=== PATIENT | male | born 1950 | race Caucasian/White ===

== ENCOUNTER 2018-12-20 15:57 | Emergency (ER) | payer OTHER ==
[~2018-12-20] VITALS: Ht 167.6 cm; Wt 57.2 kg
[2018-12-20] MEDS ORDERED: AMLODIPINE BESY10 MG (16:04)
[2018-12-20] MEDS ORDERED: LISINOPRIL40 MG (16:04)
[2018-12-20] MEDS ORDERED: TOPROL XL100 M1 (16:04)
== END 2018-12-20 17:35 | disposition home or self-care (01) ==
LOC: ER 15:57
DX: S01.02XA Laceration with foreign body of scalp, initial encounter (principal); W45.8XXA Other foreign body or object entering through skin, initial encounter; Y93.89 Activity, other specified; Y92.018 Other place in single-family (private) house as the place of occurrence of the external cause; Y99.8 Other external cause status

== ENCOUNTER 2018-12-27 08:20 | Emergency (ER) | payer OTHER ==
[~2018-12-27] VITALS: Ht 165.1 cm; Wt 61.2 kg
[~2018-12-27 08:20] MED LIST: AMLODIPINE BESY10 MG; LISINOPRIL40 MG; TOPROL XL100 M1
[2018-12-27] MEDS ORDERED: OMEGA 3 1,0001 EACH (08:28)
[2018-12-27] MEDS ORDERED: ASA81 MG PO (08:28)
[2018-12-27] MEDS ORDERED: CENTRUM SILVER1 EAC4 (08:28)
[2018-12-27] MEDS ORDERED: GLIMEPIRIDE4 MG (08:31)
== END 2018-12-27 09:48 | disposition home or self-care (01) ==
LOC: ER 08:20
DX: Z48.02 Encounter for removal of sutures (principal)

== ENCOUNTER 2021-08-31 07:17 | Outpatient (CLI) | payer OTHER ==
[~2021-08-31 07:17] MED LIST changes: +ASA81 MG PO; +CENTRUM SILVER1 EAC4; +GLIMEPIRIDE4 MG; +OMEGA 3 1,0001 EACH
== END 2021-08-31 07:28 | disposition home or self-care (01) ==
LOC: NUCLEAR 07:17
PROVIDERS: ATTEND Internal Medicine Cardiovascular Disease
DX: R07.89 Other chest pain (principal); I20.1 Angina pectoris with documented spasm; I25.89 Other forms of chronic ischemic heart disease
CPT/HCPCS: 78452; 93017; A9500; J0153

== ENCOUNTER 2022-02-17 12:05 | Emergency (ER) | payer OTHER ==
[~2022-02-17] VITALS: Ht 167.6 cm; Wt 61.2 kg
== END 2022-02-17 17:50 | disposition home or self-care (01) ==
LOC: ER 12:05
DX: E11.649 Type 2 diabetes mellitus with hypoglycemia without coma (principal); G93.41 Metabolic encephalopathy; I10 Essential (primary) hypertension; G20 Parkinson's disease; Z79.84 Long term (current) use of oral hypoglycemic drugs; Z79.82 Long term (current) use of aspirin

== ENCOUNTER 2022-05-07 09:00 | Day surgery (SDC) | payer OTHER | END 2022-05-07 14:35 | disposition home or self-care (01) | LOC: AMB-ENDOS 09:00 | PROVIDERS: ATTEND Internal Medicine Gastroenterology | DX: K31.0 Acute dilatation of stomach (principal); K29.50 Unspecified chronic gastritis without bleeding; K44.9 Diaphragmatic hernia without obstruction or gangrene; Z20.822 Contact with and (suspected) exposure to COVID-19 ==

== ENCOUNTER 2022-06-04 06:24 | Outpatient (CLI) | payer OTHER | END 2022-06-04 06:38 | disposition home or self-care (01) | LOC: LAB 06:24 | DX: D51.1 Vitamin B12 deficiency anemia due to selective vitamin B12 malabsorption with proteinuria (principal); D51.3 Other dietary vitamin B12 deficiency anemia; D63.1 Anemia in chronic kidney disease; K29.40 Chronic atrophic gastritis without bleeding; F33.9 Major depressive disorder, recurrent, unspecified; N40.1 Benign prostatic hyperplasia with lower urinary tract symptoms; E78.2 Mixed hyperlipidemia; E11.9 Type 2 diabetes mellitus without complications; N18.30 Chronic kidney disease, stage 3 unspecified ==

== ENCOUNTER 2022-06-04 07:09 | Outpatient (CLI) | payer OTHER | END 2022-06-04 07:15 | disposition home or self-care (01) | LOC: SONOGRAMA 07:09 | DX: E04.2 Nontoxic multinodular goiter (principal) ==

== ENCOUNTER 2022-09-16 06:17 | Outpatient (CLI) | payer OTHER | END 2022-09-16 06:18 | disposition home or self-care (01) | LOC: LAB 06:17 | PROVIDERS: ATTEND Internal Medicine Hematology & Oncology | DX: D51.1 Vitamin B12 deficiency anemia due to selective vitamin B12 malabsorption with proteinuria (principal); D51.3 Other dietary vitamin B12 deficiency anemia; D63.1 Anemia in chronic kidney disease; K29.40 Chronic atrophic gastritis without bleeding; F33.9 Major depressive disorder, recurrent, unspecified; N40.1 Benign prostatic hyperplasia with lower urinary tract symptoms; E78.2 Mixed hyperlipidemia; E11.9 Type 2 diabetes mellitus without complications; N18.30 Chronic kidney disease, stage 3 unspecified ==

== ENCOUNTER 2022-09-16 07:06 | Outpatient (CLI) | payer OTHER | END 2022-09-16 07:12 | disposition home or self-care (01) | LOC: SONOGRAMA 07:06 | PROVIDERS: ATTEND Internal Medicine Gastroenterology | DX: R10.9 Unspecified abdominal pain (principal) ==

== ENCOUNTER 2022-10-24 06:12 | Outpatient (CLI) | payer OTHER | END 2022-10-24 06:35 | disposition home or self-care (01) | LOC: LAB 06:12 | PROVIDERS: ATTEND Surgery | DX: Z03.818 Encounter for observation for suspected exposure to other biological agents ruled out (principal); I10 Essential (primary) hypertension; R10.9 Unspecified abdominal pain ==

== ENCOUNTER 2022-10-31 09:20 | Day surgery (SDC) | payer OTHER ==
[~2022-10-31 09:20] MED LIST changes: +ARICEPT5 MG PO; +CENTRU PO; +CRESTOR20 MG PO; +FUSION PLUS CA1 EACH PO; +GASTRACE CAPSU1 EACH PO; +GLIMEPIRIDE4 M1 PO; +HYDROCHLOROTH12.5 MG PO; +NEURIN PO; +PROTONIX40 M1 PO; +RYTARY ER 61.21 EACH PO
[2022-10-31] MEDS ORDERED: TRAMADOL HCL50 MG PO (11:28)
[2022-10-31] MEDS ORDERED: MIRALAX17 GM PO (11:28)
[2022-10-31] MEDS ORDERED: TYLENOL ARTHRI650 MG PO (11:28)
== END 2022-10-31 16:35 | disposition home or self-care (01) ==
LOC: CIR.AMB 09:20
PROVIDERS: ATTEND Surgery
DX: K80.10 Calculus of gallbladder with chronic cholecystitis without obstruction (principal); K82.8 Other specified diseases of gallbladder; Z20.822 Contact with and (suspected) exposure to COVID-19; I10 Essential (primary) hypertension; Z86.73 Personal history of transient ischemic attack (TIA), and cerebral infarction without residual deficits; D64.9 Anemia, unspecified; E11.9 Type 2 diabetes mellitus without complications; Z79.84 Long term (current) use of oral hypoglycemic drugs

== ENCOUNTER → 2023-01-23 | Outpatient (CLI) | payer OTHER ==
[~2023-01-23] MED LIST changes: +MIRALAX17 GM PO; +TRAMADOL HCL50 MG PO; +TYLENOL ARTHRI650 MG PO
== END | disposition home or self-care (01) ==
LOC: SONOGRAMA 11:05
PROVIDERS: ATTEND Specialist
DX: E11.29 Type 2 diabetes mellitus with other diabetic kidney complication (principal); N18.30 Chronic kidney disease, stage 3 unspecified

== ENCOUNTER 2023-03-06 06:11 | Outpatient (CLI) | payer OTHER | END 2023-03-06 06:12 | disposition home or self-care (01) | LOC: LAB 06:11 | PROVIDERS: ATTEND Internal Medicine | DX: I11.9 Hypertensive heart disease without heart failure (principal); Z98.61 Coronary angioplasty status; R10.9 Unspecified abdominal pain; E03.9 Hypothyroidism, unspecified; E78.5 Hyperlipidemia, unspecified; N18.30 Chronic kidney disease, stage 3 unspecified; E11.21 Type 2 diabetes mellitus with diabetic nephropathy; D63.1 Anemia in chronic kidney disease; N30.00 Acute cystitis without hematuria ==

== ENCOUNTER 2023-03-28 13:27 | Outpatient (CLI) | payer OTHER | END 2023-03-28 13:34 | disposition home or self-care (01) | LOC: SONOGRAMA 13:27 | PROVIDERS: ATTEND Urology | DX: R31.1 Benign essential microscopic hematuria (principal); R33.9 Retention of urine, unspecified ==

== ENCOUNTER 2023-03-31 06:24 | Outpatient (CLI) | payer OTHER | END 2023-03-31 06:33 | disposition home or self-care (01) | LOC: LAB 06:24 | PROVIDERS: ATTEND Urology | DX: N40.0 Benign prostatic hyperplasia without lower urinary tract symptoms (principal); N31.1 Reflex neuropathic bladder, not elsewhere classified ==

== ENCOUNTER 2023-05-16 06:27 | Outpatient (CLI) | payer OTHER | END 2023-05-16 06:28 | disposition home or self-care (01) | LOC: LAB 06:27 | PROVIDERS: ATTEND Internal Medicine Hematology & Oncology | DX: D51.1 Vitamin B12 deficiency anemia due to selective vitamin B12 malabsorption with proteinuria (principal); D51.3 Other dietary vitamin B12 deficiency anemia; D63.1 Anemia in chronic kidney disease; N18.30 Chronic kidney disease, stage 3 unspecified; K29.40 Chronic atrophic gastritis without bleeding; F33.9 Major depressive disorder, recurrent, unspecified; N40.1 Benign prostatic hyperplasia with lower urinary tract symptoms; E78.2 Mixed hyperlipidemia; E11.9 Type 2 diabetes mellitus without complications; I10 Essential (primary) hypertension ==

== ENCOUNTER 2023-06-11 10:39 | Emergency (ER) | payer OTHER ==
[~2023-06-11] VITALS: Ht 167.6 cm; Wt 70.3 kg
[2023-06-11] MEDS ORDERED: CARAFATE1 GM PO (11:40)
[2023-06-11] MEDS ORDERED: FAMOTIDINE40 MG PO (11:40)
[2023-06-11] MEDS ORDERED: NORFLEX100MG PO (13:00)
== END 2023-06-11 12:58 | disposition home or self-care (01) ==
LOC: ER 10:39
DX: R05.9 Cough, unspecified (principal); M54.9 Dorsalgia, unspecified; Z20.822 Contact with and (suspected) exposure to COVID-19; E11.9 Type 2 diabetes mellitus without complications; Z79.84 Long term (current) use of oral hypoglycemic drugs
CPT/HCPCS: 36415; 71046; 96372; 99284; J1885; J2360

== ENCOUNTER 2024-06-23 07:20 | Outpatient (CLI) | payer OTHER ==
[~2024-06-23 07:20] MED LIST changes: +CARAFATE1 GM PO; +FAMOTIDINE40 MG PO; +NORFLEX100MG PO
== END 2024-06-23 07:21 | disposition home or self-care (01) ==
LOC: NUCLEAR 07:20
PROVIDERS: ATTEND Internal Medicine Gastroenterology
DX: K31.84 Gastroparesis (principal); E11.43 Type 2 diabetes mellitus with diabetic autonomic (poly)neuropathy
CPT/HCPCS: 78264; A9541

== ENCOUNTER 2024-07-18 21:09 | Emergency (ER) | payer OTHER ==
[~2024-07-18] VITALS: Ht 167.6 cm; Wt 65.8 kg
[2024-07-18] MEDS ORDERED: GLUMETZA500 MG (21:18)
[2024-07-18] MEDS ORDERED: TOPROL XL100 M1 PO (21:19)
[2024-07-18] MEDS ORDERED: RYTARY ER 61.21 EACH PO (21:20)
[2024-07-18] MEDS ORDERED: PROSCAR5 MG PO (21:20)
[2024-07-18] MEDS ORDERED: B12 ACTIVE1000 MCG (21:20)
[2024-07-18 23:36] LABS: HEMATOCRIT 32.6 % (39.0-48.0); MEAN CELL VOLUME 86.3 fL (80.0-100.00); MEAN CORPUSCULAR HEMOGLOBIN 29.1 pg (27.00-32.0); MEAN CORPUSCULAR HGB CONC 33.8 g/dl (32.0-36.0); PLATELET COUNT 163 K/uL (150-450); RED BLOOD COUNT 3.78 M/uL (4.00-6.00); RED CELL DISTRIBUTION WIDTH 14.2 % (11.5-14.5)
[2024-07-18 23:54] LABS: BILIRUBIN TOTAL 0.72 mg/dL (0.3-1.2); CALCIUM 9.7 mg/dL (8.5-10.1); CREATININE SERUM 1.45 mg/dL (0.70-1.30); GFR 47.57; GLOBULINA 3.2 G/DL (2.4-3.5); POTASSIUM 4.35 mEq/L (3.5-5.1); TOTAL PROTEIN 7.2 gm/dL (6.4-8.2)
[2024-07-19] MEDS ORDERED: 0.9 % SODIUM CHLORIDE 500 ML IV SCH (00:30)
[2024-07-19] MEDS ORDERED: INTESTINEX680 M2 PO (01:54)
[2024-07-19] MEDS ORDERED: LEVSIN/SL0.125 MG SL (01:54)
[2024-07-19] MEDS ORDERED: ZYRTEC10 M3 PO (01:57)
== END 2024-07-19 02:04 ==
LOC: ER 21:10
PROVIDERS: General Practice
DX: R19.7 Diarrhea, unspecified (principal); Z20.822 Contact with and (suspected) exposure to COVID-19; I10 Essential (primary) hypertension; E11.9 Type 2 diabetes mellitus without complications
CPT/HCPCS: 36415; 96365; 96366; 99282; J7042

== ENCOUNTER 2024-09-17 11:44 | Emergency (ER) | payer OTHER ==
[~2024-09-17] VITALS: Ht 165.1 cm; Wt 61.2 kg
[~2024-09-17 11:44] MED LIST changes: +B12 ACTIVE1000 MCG; +GLUMETZA500 MG; +INTESTINEX680 M2 PO; +LEVSIN/SL0.125 MG SL; +PROSCAR5 MG PO; +TOPROL XL100 M1 PO; +ZYRTEC10 M3 PO
[2024-09-17] MEDS ORDERED: INSULIN REGULAR, HUMAN 1,000 UNIT/10 ML UNITS IV ONE (12:30)
[2024-09-17] MEDS ORDERED: 0.9 % SODIUM CHLORIDE 1,000 ML IV ONE (12:30)
[2024-09-17 13:48] LABS: HEMATOCRIT 34.7 % (39.0-48.0); HEMOGLOBIN 11.8 g/dL (13-16.00); MEAN CELL VOLUME 86.7 fL (80.0-100.00); MEAN CORPUSCULAR HEMOGLOBIN 29.5 pg (27.00-32.0); PLATELET COUNT 142 K/uL (150-450); RED BLOOD COUNT 4.01 M/uL (4.00-6.00); RED CELL DISTRIBUTION WIDTH 14.5 % (11.5-14.5)
[2024-09-17 14:34] LABS: ABG PH 7.424 (7.35-7.45); ABG PO2 85.2 mmHg (80-100); ABG pCO2 37.6 mmHg (35-45); BASE EXCESS -0.1 mmol/l; SaO2 96.6 %; Tco2 25.2 mmol/l
[2024-09-17 14:35] LABS: allen test SATISFACTORY; o2 21 %; puncture site RADIAL LEFT
[2024-09-17 14:42] LABS: BILIRUBIN TOTAL 0.65 mg/dL (0.3-1.2); CALCIUM 8.9 mg/dL (8.5-10.1); CREATININE SERUM 1.48 mg/dL (0.70-1.30); GFR 46.46; GLOBULINA 3.4 G/DL (2.4-3.5); INR 1.11; PARTIAL THROMBOPLASTIN TIME 28.1 SECONDS (22.0-34.0); POTASSIUM 4.3 mEq/L (3.5-5.1); TOTAL PROTEIN 7.4 gm/dL (6.4-8.2)
== END 2024-09-17 16:24 | disposition home or self-care (01) ==
LOC: ER 11:46
PROVIDERS: General Practice
DX: E11.65 Type 2 diabetes mellitus with hyperglycemia (principal); Z79.84 Long term (current) use of oral hypoglycemic drugs; I10 Essential (primary) hypertension; G20.A1 Parkinson's disease without dyskinesia, without mention of fluctuations

== ENCOUNTER 2024-09-18 10:32 | Emergency (ER) | payer OTHER ==
[~2024-09-18] VITALS: Ht 165.1 cm; Wt 61.2 kg
[2024-09-18] MEDS ORDERED: ACETAMINOPHEN 650 MG SUPP.RECT RECTAL ONE (10:45)
[2024-09-18] MEDS ORDERED: 0.9 % SODIUM CHLORIDE 1,000 ML IV ONE (11:00)
[2024-09-18 11:15] LABS: HEMATOCRIT 33.9 % (39.0-48.0); HEMOGLOBIN 11.6 g/dL (13-16.00); MEAN CELL VOLUME 86.7 fL (80.0-100.00); MEAN CORPUSCULAR HEMOGLOBIN 29.6 pg (27.00-32.0); MEAN CORPUSCULAR HGB CONC 34.2 g/dl (32.0-36.0); PLATELET COUNT 130 K/uL (150-450); RED BLOOD COUNT 3.92 M/uL (4.00-6.00); RED CELL DISTRIBUTION WIDTH 14.7 % (11.5-14.5)
[2024-09-18 11:41] LABS: ALBUMIN 3.7 gm/dL (3.4-5.0); BILIRUBIN TOTAL 0.67 mg/dL (0.3-1.2); CALCIUM 8.7 mg/dL (8.5-10.1); CREATININE SERUM 1.22 mg/dL (0.70-1.30); GFR 58.07; GLOBULINA 3.7 G/DL (2.4-3.5); POTASSIUM 3.91 mEq/L (3.5-5.1); TOTAL PROTEIN 7.4 gm/dL (6.4-8.2)
[2024-09-18 12:45] LABS: PH,URINE 6.5 (5.0-8.0); URINE APPEARANCE Clear; URINE BILIRRUBIN Negative (NEGATIVE); URINE BLOOD Moderate; URINE COLOR Yellow; URINE GLUCOSE Negative (NEGATIVE); URINE KETONE 15 (NEGATIVE); URINE LEUKOCYTE Negative; URINE NITRATE Negative
[2024-09-18 12:50] LABS: URINE EPITHELIAL CELLS 3.9 uL (0.0-38.8); URINE WBC 5.2 uL (0.0-23.2)
[2024-09-18 13:05] LABS: URINE CAST 0.14 uL (0.0-1.40); URINE PROTEIN 100 (NEGATIVE)
== END 2024-09-18 13:55 | disposition home or self-care (01) ==
LOC: ER 10:32
PROVIDERS: General Practice
DX: J10.1 Influenza due to other identified influenza virus with other respiratory manifestations (principal); I10 Essential (primary) hypertension; Z20.822 Contact with and (suspected) exposure to COVID-19
CPT/HCPCS: 36415; 96365; 96366; 99282; J7030

== ENCOUNTER → 2025-03-18 07:04 | Outpatient (CLI) | payer OTHER ==
[2025-03-18 07:55] LABS: BASO % 0.9 % (0.1-1.2); EOS # 0.19 (0.04-0.54); EOS % 3.3 % (0.7-7.0); HEMATOCRIT 33.5 % (40.1-51.0); HEMOGLOBIN 10.8 g/dL (13.7-17.5); LYMPH # 1.71 (1.18-3.74); LYMPH % 29.6 % (19.3-53.1); NEUT # 3.11 (1.56-6.13); NEUT % 53.9 % (34.0-71.1); PLATELET COUNT 178 K/uL (163-369); RED BLOOD COUNT 3.86 M/uL (4.63-6.08); RED CELL DISTRIBUTION WIDTH 14.2 % (11.6-14.4)
[2025-03-18 08:00] LABS: MONO % 12.1 % (4.7-12.5)
[2025-03-18 08:02] LABS: PH,URINE 5.5 (5.0-8.0); URINE APPEARANCE Clear; URINE BILIRRUBIN Negative (NEGATIVE); URINE BLOOD Negative; URINE COLOR Yellow; URINE GLUCOSE Negative (NEGATIVE); URINE KETONE Trace (NEGATIVE); URINE LEUKOCYTE Trace; URINE NITRATE Negative; URINE PROTEIN Negative (NEGATIVE)
[2025-03-18 08:07] LABS: URINE BACTERIA 50.1 uL (0.0-1933); URINE EPITHELIAL CELLS 3.4 uL (0.0-38.8); URINE RBC 5.8 uL (0.0-20.8); URINE WBC 13.4 uL (0.0-23.2)
[2025-03-18 08:59] LABS: ALBUMIN 3.7 gm/dL (3.4-5.0); BILIRUBIN TOTAL 0.5 mg/dL (0.3-1.2); CALCIUM 8.9 mg/dL (8.5-10.1); CHOL HDL RATIO 1.7 (0-5.0); CREATININE SERUM 1.09 mg/dL (0.70-1.30); GFR 65.95; GLOBULINA 2.7 G/DL (2.4-3.5); POTASSIUM 4.67 mEq/L (3.5-5.1); TOTAL PROTEIN 6.4 gm/dL (6.4-8.2)
[2025-03-18 13:50] LABS: PROSTATIC SPECIFIC ANTIGEN 1.35 NG/ML (0.010-4.00)
== END | disposition home or self-care (01) ==
LOC: LAB 07:04
PROVIDERS: ATTEND Urology
DX: I11.9 Hypertensive heart disease without heart failure (principal); E11.9 Type 2 diabetes mellitus without complications; E78.2 Mixed hyperlipidemia; N40.0 Benign prostatic hyperplasia without lower urinary tract symptoms; R97.20 Elevated prostate specific antigen [PSA]

== ENCOUNTER 2025-06-18 08:04 | Outpatient (CLI) | payer OTHER ==
[2025-06-18 09:55] LABS: BASO % 0.8 % (0.1-1.2); EOS # 0.21 (0.04-0.54); EOS % 3.3 % (0.7-7.0); LYMPH # 2.03 (1.18-3.74); LYMPH % 31.4 % (19.3-53.1); MEAN PLATELET VOLUME 11.00 fl (9.4-12.4); MONO # 0.69 (0.24-0.82); MONO % 10.7 % (4.7-12.5); NEUT # 3.47 (1.56-6.13); NEUT % 53.6 % (34.0-71.1); RED CELL DISTRIBUTION WIDTH 13.4 % (11.6-14.4)
[2025-06-18 10:31] LABS: ALT/SGPT 8.0 U/L (12-78); AST/SGOT 7.0 U/L (15-37); BILIRUBIN TOTAL 0.54 mg/dL (0.3-1.2); BUN CREA RATIO 26.0 (7.0-25.0); CREATININE SERUM 1.1 mg/dL (0.70-1.30); FE 90.0 ug/dl (65-175); GFR 65.26; GLOBULINA 3.0 G/DL (2.4-3.5); GLUCOSE FASTING 118.0 mg/dL (65-100); LDH 155.0 U/L (87-241); OSMOLALITY SERUM 292.0 MOSM/KG (275-295)
[2025-06-20 12:04] LABS: FOLIC ACID > 20.00 ng/ml (4.78-20)
== END 2025-06-18 08:48 | disposition home or self-care (01) ==
LOC: LAB 08:04
PROVIDERS: ATTEND Internal Medicine Hematology & Oncology
DX: D51.1 Vitamin B12 deficiency anemia due to selective vitamin B12 malabsorption with proteinuria (principal); D51.3 Other dietary vitamin B12 deficiency anemia; D63.1 Anemia in chronic kidney disease; N18.30 Chronic kidney disease, stage 3 unspecified; K29.40 Chronic atrophic gastritis without bleeding; F33.9 Major depressive disorder, recurrent, unspecified; N40.1 Benign prostatic hyperplasia with lower urinary tract symptoms; E78.2 Mixed hyperlipidemia; E11.9 Type 2 diabetes mellitus without complications; I10 Essential (primary) hypertension; B96.81 Helicobacter pylori [H. pylori] as the cause of diseases classified elsewhere

== ENCOUNTER 2025-09-10 18:10 | Inpatient (IN) | payer OTHER ==
[~2025-09-10] VITALS: Ht 172.7 cm; Wt 61.2 kg
[2025-09-10] MEDS ORDERED: CARAFATE1 GM (19:06)
[2025-09-10] MEDS ORDERED: LIPO-FLAVONOID1 EACH (19:06)
[2025-09-10] MEDS ORDERED: FUSION PLUS CA1 EACH (19:07)
[2025-09-10] MEDS ORDERED: 0.9 % SODIUM CHLORIDE 1,000 ML IV SCH (20:00)
[2025-09-10 20:58] LABS: BASO % 0.2 % (0.1-1.2); EOS # 0.00 (0.04-0.54); EOS % 0.0 % (0.7-7.0); LYMPH # 0.68 (1.18-3.74); LYMPH % 8.1 % (19.3-53.1); MEAN PLATELET VOLUME 9.50 fl (9.4-12.4); MONO # 0.88 (0.24-0.82); MONO % 10.4 % (4.7-12.5); NEUT # 6.83 (1.56-6.13); NEUT % 80.9 % (34.0-71.1); RED CELL DISTRIBUTION WIDTH 13.4 % (11.6-14.4)
[2025-09-10 21:44] LABS: ALT/SGPT 12.0 U/L (12-78); AST/SGOT 42.0 U/L (15-37); BILIRUBIN TOTAL 0.63 mg/dL (0.3-1.2); BUN CREA RATIO 21.0 (7.0-25.0); CREATININE SERUM 1.35 mg/dL (0.70-1.30); GFR 51.52; GLOBULINA 3.1 G/DL (2.4-3.5); GLUCOSE FASTING 169.0 mg/dL (65-100); OSMOLALITY SERUM 287.0 MOSM/KG (275-295)
[2025-09-10 22:09] LABS: COVID-19 AG NEGATIVE (NEGATIVE)
[2025-09-10 22:37] LABS: URINE APPEARANCE Clear; URINE BILIRRUBIN Negative (NEGATIVE); URINE BLOOD Negative; URINE COLOR Dark Yellow; URINE GLUCOSE Negative (NEGATIVE); URINE KETONE 15 (NEGATIVE); URINE LEUKOCYTE Trace; URINE NITRATE Negative; URINE UROBILINOGEN 1.0 E.U./dl
[2025-09-10 22:40] LABS: URINE BACTERIA 160.7 uL (0.0-1933); URINE CAST 2.19 uL (0.0-1.40); URINE EPITHELIAL CELLS 21.0 uL (0.0-38.8); URINE RBC 37.1 uL (0.0-20.8); URINE WBC 3.0 uL (0.0-23.2)
[2025-09-10 22:57] LABS: URINE PROTEIN 100 (NEGATIVE)
[2025-09-11] MEDS ORDERED: CEFTRIAXONE SODIUM 1,000 MG VIAL IV ONE (00:15)
[2025-09-11 08:41] LABS: BASO % 0.1 % (0.1-1.2); EOS # 0.00 (0.04-0.54); EOS % 0.0 % (0.7-7.0); LYMPH # 0.92 (1.18-3.74); LYMPH % 9.9 % (19.3-53.1); MEAN PLATELET VOLUME 10.70 fl (9.4-12.4); MONO # 0.82 (0.24-0.82); MONO % 8.8 % (4.7-12.5); NEUT # 7.50 (1.56-6.13); NEUT % 80.8 % (34.0-71.1); RED CELL DISTRIBUTION WIDTH 13.6 % (11.6-14.4)
[2025-09-11] MEDS ORDERED: 0.9 % SODIUM CHLORIDE 1,000 ML IV STA (08:50)
[2025-09-11] MEDS ORDERED: AZITHROMYCIN 500 MG VIAL IV STA (09:36)
[2025-09-11] MEDS ORDERED: LEVALBUTEROL HCL 0.63 MG/3 ML SOLUTION IH SCH (09:37)
[2025-09-11] MEDS ORDERED: METHYLPREDNISOLONE SOD SUCC 125 MG VIAL IV SCH (09:37)
[2025-09-11] MEDS ORDERED: IPRATROPIUM BROMIDE 0.5 MG/2.5 ML AMPUL.NEB IH SCH (09:38)
[2025-09-11] MEDS ORDERED: INSULIN LISPRO 1,000 UNIT/10 ML UNITS SUBCUTANEO PRN (21:15)
[2025-09-11] MEDS ORDERED: DEXTROSE 50 % IN WATER 0.5 G/ML DISP.SYRIN IV PRN (21:15)
[2025-09-11] MEDS ORDERED: FAMOTIDINE/PF 20 MG in 0.9 % SODIUM CHLORIDE 100 ML IV SCH (21:21)
[2025-09-11] MEDS ORDERED: ACETAMINOPHEN 500 MG GEL..CAP PO SCH (21:21)
[2025-09-11] MEDS ORDERED: ENOXAPARIN SODIUM 40 MG/0.4 ML SYRINGE SUBCUTANEO SCH (21:24)
[2025-09-12 06:16] LABS: BASO % 0.1 % (0.1-1.2); EOS # 0.00 (0.04-0.54); EOS % 0.0 % (0.7-7.0); LYMPH # 0.64 (1.18-3.74); LYMPH % 6.7 % (19.3-53.1); MEAN PLATELET VOLUME 10.50 fl (9.4-12.4); MONO # 0.76 (0.24-0.82); MONO % 8.0 % (4.7-12.5); NEUT # 8.09 (1.56-6.13); NEUT % 84.7 % (34.0-71.1); RED CELL DISTRIBUTION WIDTH 13.6 % (11.6-14.4)
[2025-09-12 06:19] VITALS: BP 139/68; O2SAT 96
[2025-09-12 06:39] LABS: BUN CREA RATIO 20.0 (7.0-25.0); CREATININE SERUM 1.38 mg/dL (0.70-1.30); GFR 50.23; OSMOLALITY SERUM 297.0 MOSM/KG (275-295)
[2025-09-12 06:40] LABS: GLUCOSE FASTING 246.0 mg/dL (65-100)
[2025-09-12 08:00] VITALS: BP 149/74; O2SAT 98
[2025-09-12] MEDS ORDERED: CEFTRIAXONE SODIUM 2,000 MG in 0.9 % SODIUM CHLORIDE 100 ML IV SCH (09:00)
[2025-09-12] MEDS ORDERED: AZITHROMYCIN 500 MG VIAL IV SCH (09:00)
[2025-09-12] MEDS ORDERED: METHYLPREDNISOLONE SOD SUCC 40 MG VIAL IV SCH (13:00)
[2025-09-12 16:00] VITALS: BP 169/79; O2SAT 99
[2025-09-13] VITALS: BP 155/70; O2SAT 98
[2025-09-13 07:26] LABS: BASO % 0.0 % (0.1-1.2); EOS # 0.00 (0.04-0.54); EOS % 0.0 % (0.7-7.0); LYMPH # 0.47 (1.18-3.74); LYMPH % 4.2 % (19.3-53.1); MEAN PLATELET VOLUME 10.60 fl (9.4-12.4); MONO # 0.68 (0.24-0.82); MONO % 6.1 % (4.7-12.5); NEUT # 9.86 (1.56-6.13); NEUT % 89.0 % (34.0-71.1); RED CELL DISTRIBUTION WIDTH 13.3 % (11.6-14.4)
[2025-09-13 08:07] LABS: ALT/SGPT 17.0 U/L (12-78); AST/SGOT 49.0 U/L (15-37); BILIRUBIN TOTAL 0.3 mg/dL (0.3-1.2); BUN CREA RATIO 21.0 (7.0-25.0); CREATININE SERUM 1.24 mg/dL (0.70-1.30); GFR 56.83; GLOBULINA 3.3 G/DL (2.4-3.5)
[2025-09-13 08:24] LABS: OSMOLALITY SERUM 296.0 MOSM/KG (275-295)
[2025-09-13 08:25] LABS: GLUCOSE FASTING 306.0 mg/dL (65-100)
[2025-09-13 08:32] VITALS: BP 133/67; O2SAT 96
[2025-09-13] MEDS ORDERED: NAPH,MB-DB/K PH,MBDB 1 PKT PACKET PO SCH (09:00)
[2025-09-13 16:52] VITALS: BP 162/77; O2SAT 96
[2025-09-13 19:15] VITALS: BP 138/68
[2025-09-13] MEDS ORDERED: INSULIN GLARGINE,HUM.REC.ANLOG 1,000 UNITS/10 ML UNITS SUBCUTANEO SCH (21:00)
[2025-09-14] MEDS ORDERED: HALOPERIDOL LACTATE 5 MG/ML AMPUL IM PRN (00:30)
[2025-09-14 03:06] VITALS: BP 143/77; O2SAT 97
[2025-09-14] MEDS ORDERED: AZITHROMYCIN 500 MG VIAL IV ONE (06:53)
[2025-09-14] MEDS ORDERED: Cyanocobalamin/Mecobalamin 1 TAB.SL SL SCH (09:00)
[2025-09-14] MEDS ORDERED: METOPROLOL SUCCINATE 25 MG TAB.SR.24H PO SCH (09:00)
[2025-09-14] MEDS ORDERED: LOSARTAN POTASSIUM 25 MG TABLET PO SCH (09:00)
[2025-09-14] MEDS ORDERED: ROSUVASTATIN CALCIUM 10 MG TABLET PO SCH (09:00)
[2025-09-14] MEDS ORDERED: FINASTERIDE 5 MG TABLET PO SCH (09:00)
[2025-09-14] MEDS ORDERED: ASPIRIN 81 MG TAB.CHEW PO SCH (09:00)
[2025-09-14 09:06] VITALS: BP 152/75; O2SAT 95
[2025-09-14] MEDS ORDERED: POTASSIUM PHOS,M-BASIC-D-BASIC 15 MM in 0.9 % SODIUM CHLORIDE 250 ML IV ONE (10:00)
[2025-09-14 16:00] VITALS: BP 147/73; O2SAT 92
[2025-09-15 00:30] VITALS: BP 141/77; O2SAT 97
[2025-09-15] MEDS ORDERED: AZITHROMYCIN 500 MG VIAL IV ONE (08:25)
[2025-09-15 08:30] VITALS: BP 156/73; O2SAT 96
[2025-09-15 16:48] VITALS: BP 165/77; O2SAT 97
[2025-09-16 01:00] VITALS: BP 140/78; O2SAT 97
[2025-09-16 07:30] VITALS: BP 148/72; O2SAT 97
[2025-09-16 07:33] LABS: BASO % 0.2 % (0.1-1.2); EOS # 0.00 (0.04-0.54); EOS % 0.0 % (0.7-7.0); LYMPH # 0.82 (1.18-3.74); LYMPH % 8.0 % (19.3-53.1); MEAN PLATELET VOLUME 10.30 fl (9.4-12.4); MONO # 0.98 (0.24-0.82); MONO % 9.6 % (4.7-12.5); NEUT # 8.20 (1.56-6.13); NEUT % 80.1 % (34.0-71.1); RED CELL DISTRIBUTION WIDTH 13.3 % (11.6-14.4)
[2025-09-16 08:18] LABS: ALT/SGPT 23.0 U/L (12-78); AST/SGOT 52.0 U/L (15-37); BILIRUBIN TOTAL 0.38 mg/dL (0.3-1.2); BUN CREA RATIO 21.0 (7.0-25.0); CREATININE SERUM 1.05 mg/dL (0.70-1.30); GFR 68.86; GLOBULINA 2.9 G/DL (2.4-3.5); GLUCOSE FASTING 103.0 mg/dL (65-100); OSMOLALITY SERUM 287.0 MOSM/KG (275-295)
[2025-09-16] MEDS ORDERED: AZITHROMYCIN 500 MG VIAL IV ONE (08:27)
[2025-09-16] MEDS ORDERED: INSULIN GLARGINE,HUM.REC.ANLOG 1,000 UNITS/10 ML UNITS SUBCUTANEO SCH (09:00)
[2025-09-16 18:33] VITALS: BP 137/74; O2SAT 98
[2025-09-17 00:30] VITALS: BP 136/74; O2SAT 97
[2025-09-17 08:00] VITALS: BP 170/80; O2SAT 97
[2025-09-17] MEDS ORDERED: AZITHROMYCIN 500 MG VIAL IV ONE (08:18)
[2025-09-17 15:00] VITALS: BP 102/66; O2SAT 97
[2025-09-18 01:45] VITALS: BP 157/77; O2SAT 98
[2025-09-18] MEDS ORDERED: AZITHROMYCIN 500 MG VIAL IV ONE (07:37)
[2025-09-18 08:00] VITALS: BP 158/56; O2SAT 95
[2025-09-18] MEDS ORDERED: ZITHROMAX500 MG PO (12:47)
== END 2025-09-18 15:02 | disposition home or self-care (01) | DRG 193 ==
LOC: ER 18:10 → SURH 09-11 21:24 → SEC-K 09-11 21:24 → SURH 09-11 22:53
PROVIDERS: General Practice; Internal Medicine Infectious Disease; Preventive Medicine Public Health & General Preventive Medicine; ADMIT Internal Medicine; ATTEND Internal Medicine
PROC: BW28ZZZ Computerized Tomography (CT Scan) of Head (ICD-10-PCS; principal; 2025-09-10)
PROC: BB24ZZZ Computerized Tomography (CT Scan) of Bilateral Lungs (ICD-10-PCS; 2025-09-11)
PROC: 3E0F7GC Introduction of Other Therapeutic Substance into Respiratory Tract, Via Natural or Artificial Opening (ICD-10-PCS; 2025-09-11)
DX: J18.9 Pneumonia, unspecified organism (principal); G93.41 Metabolic encephalopathy; E11.8 Type 2 diabetes mellitus with unspecified complications; Z86.69 Personal history of other diseases of the nervous system and sense organs; R47.89 Other speech disturbances; R50.9 Fever, unspecified; E11.649 Type 2 diabetes mellitus with hypoglycemia without coma; J10.1 Influenza due to other identified influenza virus with other respiratory manifestations